=== PATIENT | male | born 1985 ===

== ENCOUNTER 2021-01-15 09:19 | Emergency (ER) | payer SELFPAY ==
[2021-01-15 09:30] VITALS: BP 169/112; PULSE 117; RESP 24; O2SAT 100
--- NOTE | 2021-01-15 09:47 | ECG_ITS ---
Measurements Intervals [place] Rate: 75 P: 40 [place]: 141 QRS: 32 QRSD: 90 T: 71 QT: 368 QTc: 414 Interpretive Statements SINUS RHYTHM MINIMAL Q WAVES- INFERIOR LEADS BORDERLINE ECG Electronically Signed On 01-15-2021 10:31:45 CDT by Mckay Kumari D.O.
--- NOTE | 2021-01-15 09:53 | ED.ANXIETY ---
HPI - Anxiety General Chief Complaint: Anxiety <Eugenie Shultz PA-C - Last Filed: 01/15/21 13:12> Stated Complaint: anxiety <YOCASTA Crook Last Filed: 01/15/21 13:12> Time Seen by Provider: 01/15/21 09:22 <YOCASTA Crook Last Filed: 01/15/21 13:12> Source: patient <YOCASTA Crook Last Filed: 01/15/21 13:12> Mode of arrival: ambulatory <YOCASTA Crook Last Filed: 01/15/21 13:12> Limitations: no limitations <YOCASTA Crook Last Filed: 01/15/21 13:12> History of Present Illness HPI narrative: This is a 35-year-old male that presents the emergency department for increasing anxiety. Reports worsening over the last couple of months. Reports his anxiety has been really bad since yesterday. He woke up and thought that he did not want to deal with this anymore. He does not have any thoughts of harming himself or anyone else. Reports he constantly worries, although he does not feel like he has anything to worry about. Reports he feels like there is an elephant on his chest and he gets tingling in his hands. Reports he was on medication for his anxiety in the past, but this was years ago. He does have a primary doctor, but has not reached out to him at all. No previous attempts at self-harm or suicide. No previous psychiatric hospitalizations. <Eugenie Shultz PA-C - Last Filed: 01/15/21 13:12> Related Data Allergies/Adverse Reactions: Allergies Allergy/AdvReac Type Severity Reaction Status Date / Time amoxicillin Allergy Unknown unknown Verified 01/15/21 09:40 Penicillins Allergy Unknown unknown-early Verified 01/15/21 09:40 childhood <YOCASTA Crook Last Filed: 01/15/21 13:12> Review of Systems Review of Systems: Narrative: CONSTITUTIONAL: Denies fever CARDIOVASCULAR: Reports chest pain RESPIRATORY: Denies dyspnea. NEUROLOGIC: Denies numbness, or weakness. PSYCHIATRIC: Reports anxiety <Eugenie Shultz PA-C - Last Filed: 01/15/21 13:12> All systems reviewed & are unremarkable except as noted in HPI and below <Eugenie Shultz PA-C - Last Filed: 01/15/21 13:12> PMFSH Past Medical History Medical History: Medical History (Updated 01/15/21 @ 13:10 by Eugenie Shultz PA-C) History of anxiety <Eugenie Shultz PA-C - Last Filed: 01/15/21 13:12> Social History Social History: Social History Substance use type: marijuana <Eugenie Shultz PA-C - Last Filed: 01/15/21 13:12> Exam Narrative: Exam Narrative: GENERAL: Well-appearing, well-nourished, and in no acute distress. HEAD: Normocephalic, atraumatic. EYES: PERRLA and EOMI. ENT: Nares clear, no rhinorrhea or epistaxis. Mucous membranes moist. Oropharynx without tonsillar hypertrophy exudate or other lesions. NECK: Supple. No adenopathy or masses. CHEST: Clear to auscultation. No respiratory distress. No wheezes rales or rhonchi HEART: Regular rate and rhythm. No murmur heard. Normal peripheral pulses. EXTREMITIES: Normal range of motion. No edema. SKIN: Warm, dry, no rash. NEURO: No focal deficits. Alert and oriented x3. PSYCH: Anxious <Eugenie Shultz PA-C - Last Filed: 01/15/21 13:12> Course Vital Signs Vital signs: Vital Signs Pulse Rate 117 H 01/15/21 09:30 Respiratory Rate 24 H 01/15/21 09:30 Blood Pressure 169/112 H 01/15/21 09:30 Pulse Oximetry 100 01/15/21 09:30 Pulse Rate 84 01/15/21 13:42 Respiratory Rate 16 01/15/21 13:42 Blood Pressure 173/98 H 01/15/21 13:42 Pulse Oximetry 98 01/15/21 13:42 <Eugenie Shultz PA-C - Last Filed: 01/15/21 13:12> Vital Signs Pulse Rate 117 H 01/15/21 09:30 Respiratory Rate 24 H 01/15/21 09:30 Blood Pressure 169/112 H 01/15/21 09:30 Pulse Oximetry 100 01/15/21 09:30 Pulse Rate 84 01/15/21 13:42 Respiratory Rate 16 01/15/21 13:42 Blood Pressure 173/98 H 01/15/21 13:42 Pulse Oximetry 98 01/15/21 13:42 Florencio Marie
[2021-01-15 10:16] LABS: Basophils Percent Auto 0.5 % (0.2-1.2); Eosinophils Percent Auto 0.2 % (0-4.4); Hematocrit 48.6 % (42.0-52.0); Hemoglobin 17.4 g/dL (14.0-18.0); Immature Granulocyte Absolute 0.03 K/mm3 (0.00-0.031); Immature Granulocyte Percent A 0.4 % (0-0.5); Lymphocytes Absolute Auto 2.04 K/mm3 (0.9-3.2); Lymphocytes Percent Auto 25.2 % (18.3-44.2); Mean Corpuscular HGB Conc 35.8 g/dl (32-36); Mean Corpuscular Volume 92.2 fl (80-100); Mean Platelet Volume 9.7 fl (7.4-10.4); Monocytes Absolute Auto 0.3 K/mm3 (0.1-0.6); Monocytes Percent Auto 4.2 % (2.6-8.5); Neutrophils Absolute Auto 5.6 K/mm3 (1.3-6.7); Neutrophils Percent Auto 69.5 % (45.5-73.1); Platelet Count Result 279 k/mm3 (150-375); Red Blood Count 5.27 M/mm3 (4.6-6.20); White Blood Count 8.1 K/mm3 (4.5-10.0)
[2021-01-15] MEDS: LORazepam (*CRX) 0.5 MG TABLET PO (10:22)
[2021-01-15 10:34] LABS: Ethanol 68 mg/dL (<10)
[2021-01-15 10:36] LABS: Alanine Aminotransferase 43 U/L (4-50); Albumin Level 4.9 g/dL (3.5-5.1); Alkaline Phosphatase 98 U/L (38-126); Anion Gap 17 mmol/L (8-16); Aspartate Amino Transferase 62 U/L (17-59); Bilirubin,Total 0.5 mg/dL (0.2-1.3); Blood Urea Nitrogen 9 mg/dL (9-20); Calcium 9.6 mg/dL (8.4-10.2); Carbon Dioxide 22 mmol/L (22-30); Chloride 104 mmol/L (98-107); Estimated CRCL calculation 101 ml/min; Estimated Glomerular Filt Rate > 60; Glucose 115 mg/dL (75-110); Potassium 3.6 mmol/L (3.4-5.0); Sodium 143 mmol/L (137-145)
[2021-01-15 10:47] LABS: Troponin I < 0.012 ng/mL (0.000-0.034)
[2021-01-15 10:53] LABS: Add Urine Microscopic? YES; Appearance Urine Clear (Clear); Bilirubin Urine Negative (Negative); Blood Urine Negative (Negative); Color Urine Yellow (Yellow); Glucose Urine UA Negative (Negative); Ketones Urine 1+ mg/dL (Negative); Leukocyte Esterase Ur Negative LEU/UL (Negative); Mucus Urine Moderate /lpf; Nitrate Urine Negative (Negative); Protein Urine 2+ mg/dL (Negative); RBC Urine 0-2 /hpf (0-2); Specific Grav Ur 1.019 (1.001-1.035); Urobilinogen Urine Negative mg/dL (<2.0); WBC Urine 0-3 /hpf
[2021-01-15 11:07] LABS: Amphetamine Screen Urine Negative (Negative); Benzodiazepines Screen Urine Negative (Negative); Cannabinoid Screen Urine Positive (Negative); Cocaine Screen Urine Negative (Negative); Methadone Screen Urine Negative (Negative); Opiate Screen Urine Negative (Negative); Phencyclidine Screen Urine Negative (Negative)
[2021-01-15 11:09] LABS: Barbiturate Screen Urine Negative (Negative)
[2021-01-15 13:42] VITALS: BP 173/98; PULSE 84; RESP 16; O2SAT 98
== END 2021-01-15 13:44 | disposition home or self-care (01) ==
PROVIDERS: Physician Assistant; Emergency Provider General Practice; PCP Family Medicine
DX: F41.9 Anxiety disorder, unspecified (principal); R94.31 Abnormal electrocardiogram [ECG] [EKG]
CPT/HCPCS: 36415; 80053; 80307; 81001; 84443; 84484; 85025; 93005; 99284; A9270

== ENCOUNTER 2021-11-17 08:31 | Emergency (ER) | payer SELFPAY ==
[2021-11-17] VITALS (9 sets, daily range): BP systolic 131–177; BP diastolic 98–116; PULSE 92–116; RESP 16–22; O2SAT 97–100
--- NOTE | ~2021-11-17 | CT_ITS ---
EXAMINATION: CT abdomen pelvis w con DATE: 11/17/2021 13:17 INDICATION: Nausea and vomiting TECHNIQUE: Computed tomography (CT) of the abdomen and pelvis was performed with 100 cc Omnipaque 350 intravenous contrast. The dose-length product was 832.23 mGy-cm. Automated exposure control and iter ative reconstruction technique were employed. COMPARISON: None. FINDINGS: Lung bases are unremarkable. Heart size normal. No significant pleural or pericardial effus ion. Fatty infiltration of the liver. The spleen, pancreas, adrenal glands and right kidney are unrem arkable. There is a subcentimeter hypodensity of the left kidney, most likely benign cysts. No ureter al stones or hydronephrosis. Gallbladder is present. Normal appendix. Nonobstructive bowel gas patter n. No free air or free fluid. IMPRESSION: 1. No acute abdominal abnormality. Reviewed, dictated and finalized at location A.
--- NOTE | ~2021-11-17 | XR_ITS ---
EXAMINATION: XR chest 2V 11/17/2021 09:01 INDICATION: Anxiety. Chest tightness. PROCEDURE: 2 view chest COMPARISON: No prior studies for comparison. FINDINGS: The lungs are clear. The cardiomediastinal silhouette is within normal limits. There are no pleural effusions. There is no pneumothorax suspected. IMPRESSION: 1: NO ACUTE CARDIOPULMONARY DISEASE. Reviewed, dictated and finalized at location A.
--- NOTE | 2021-11-17 08:42 | ECG_ITS ---
Measurements Intervals [place] Rate: 108 P: 75 [place]: 134 QRS: 66 QRSD: 93 T: 47 QT: 329 QTc: 442 Interpretive Statements SINUS TACHYCARDIA NONSPECIFIC ST AND T-WAVE ABNORMALITY ABNORMAL ECG COMPARED TO ECG 01/15/2021 10:27:02 SINUS TACHYCARDIA NOW PRESENT Electronically Signed On 11-17-2021 11:21:47 CDT by Philip Turk M.D.
[2021-11-17 09:15] LABS: Basophils Absolute Auto 0.1 K/mm3 (0.0-0.1); Basophils Percent Auto 0.6 % (0.2-1.2); Eosinophils Percent Auto 0.3 % (0-4.4); Hematocrit 52.1 % (42.0-52.0); Hemoglobin 17.5 g/dL (14.0-18.0); Immature Granulocyte Absolute 0.03 K/mm3 (0.00-0.031); Immature Granulocyte Percent A 0.3 % (0-0.5); Lymphocytes Absolute Auto 1.82 K/mm3 (0.9-3.2); Lymphocytes Percent Auto 18.5 % (18.3-44.2); Mean Corpuscular HGB Conc 33.6 g/dl (32-36); Mean Corpuscular Hemoglobin 32.8 pg (26-34); Mean Corpuscular Volume 97.6 fl (80-100); Mean Platelet Volume 9.6 fl (7.4-10.4); Monocytes Absolute Auto 0.2 K/mm3 (0.1-0.6); Monocytes Percent Auto 2.1 % (2.6-8.5); Neutrophils Absolute Auto 7.7 K/mm3 (1.3-6.7); Neutrophils Percent Auto 78.2 % (45.5-73.1); Platelet Count Result 331 k/mm3 (150-375); Red Blood Count 5.34 M/mm3 (4.6-6.20); Red Cell Distribution Width 13.3 % (11.5-14.5); White Blood Count 9.9 K/mm3 (4.5-10.0)
[2021-11-17] MEDS: diphenhydrAMINE HCl CAP 25 MG CAPSULE PO (09:23)
[2021-11-17 09:24] LABS: Alkaline Phosphatase 112 U/L (38-126); Anion Gap 25 mmol/L (8-16); Aspartate Amino Transferase 75 U/L (17-59); Bilirubin,Total 0.9 mg/dL (0.2-1.3); Blood Urea Nitrogen 14 mg/dL (9-20); Calcium 9.2 mg/dL (8.4-10.2); Carbon Dioxide 16 mmol/L (22-30); Chloride 99 mmol/L (98-107); Estimated CRCL calculation 84 ml/min; Estimated Glomerular Filt Rate > 60; Glucose 77 mg/dL (65-110); Potassium 4.4 mmol/L (3.4-5.0); Sodium 140 mmol/L (137-145)
[2021-11-17 09:30] LABS: Alanine Aminotransferase 63 U/L (4-50)
[2021-11-17 09:34] LABS: Troponin I < 0.012 ng/mL (0.000-0.034)
--- NOTE | 2021-11-17 09:38 | ED.SOB ---
HPI - SOB/Dyspnea General Chief Complaint: Shortness of Breath/Dyspnea Stated Complaint: sob Time Seen by Provider: 11/17/21 08:38 Source: patient History of Present Illness HPI Narrative: Patient presents with shortness of breath. Reports he had shortness of breath for approximately 1 year with intermittent exacerbations his current episode started last night this morning it was worse he came to the ER for evaluation. Reports he was seen several months ago for something similar diagnosed with anxiety was treated for anxiety and his symptoms improved. He denies any chest pain, cough, congestion, fevers denies recent hospitalizations or surgeries denies any abdominal pain denies any diarrhea or urinary symptoms Related Data Allergies Allergy/AdvReac Type Severity Reaction Status Date / Time amoxicillin Allergy Unknown unknown Verified 11/17/21 08:43 Penicillins Allergy Unknown unknown-early Verified 11/17/21 08:43 childhood Review of Systems Review of Systems: CONSTITUTIONAL: Denies fever, chills, or sweats. EYES: Denies visual changes, redness, or discharge. ENT: Denies rhinorrhea, congestion, sore throat, or otalgia. CARDIOVASCULAR: Denies chest pain, palpitations, or edema. RESPIRATORY: Denies cough. GASTROINTESTINAL: Denies abdominal pain, nausea, vomiting, or diarrhea. GENITOURINARY: Denies dysuria or hematuria. SKIN: Denies rash or itching. MUSCULOSKELETAL: Denies back pain, joint pain, or myalgia. NEUROLOGIC: Denies headache, numbness, dizziness, or weakness. PSYCHIATRIC: Denies anxiety or depression. All systems reviewed & are unremarkable except as noted in HPI and below PMFSH Past Medical History Medical History (Updated 11/17/21 @ 12:21 by Nura Martinez MD) Anxiety History of anxiety Social History Social History Substance use type: marijuana Exam Narrative: GENERAL: Well-appearing, well-nourished, and in no acute distress. HEAD: Normocephalic, atraumatic. EYES: PERRLA and EOMI. ENT: Nares clear, no rhinorrhea or epistaxis. Mucous membranes moist. NECK: Supple. No masses. No JVD CHEST: Clear to auscultation. No respiratory distress. No wheezes rales or rhonchi HEART: Regular rate and rhythm. No murmur heard. Normal peripheral pulses. ABDOMEN: Soft, nontender, nondistended, normal active bowel sounds. EXTREMITIES: Normal range of motion. No edema. SKIN: Warm, dry, no rash. NEURO: No focal deficits. Alert and oriented x3. PSYCH: Normal mood and affect. Course Reevaluation(s) Reevaluation #1: Patient feels somewhat improved results and plan reviewed with patient. Patient is comfortable outpatient plan. Date: 11/17/21 Time: 12:17 Vital Signs Vital signs: Vital Signs Pulse Rate 116 H 11/17/21 08:37 Respiratory Rate 18 11/17/21 08:37 Blood Pressure 177/116 H 11/17/21 08:37 Pulse Oximetry 100 11/17/21 08:37 Pulse Rate 112 H 11/17/21 16:13 Respiratory Rate 20 11/17/21 16:13 Blood Pressure 131/99 H 11/17/21 16:13 Pulse Oximetry 97 11/17/21 16:13 MDM - SOB/Dyspnea MDM Narrative Medical decision making narrative: H&P as above, vss, pt looks clinically well, exam reassuring, labs clinically unremarkable, img without acute process, additional labs/img considered, symptomatic relief available as needed, on reevaluation pt continues to looks clinically well. Suspect anxiety, dns PE, dissection, ACS, pneumothorax. plan to tx/monitor as op w/ pcm f/u findings/plan discussed with pt, pt agree/comfortable with plan, return precautions given Lab Data Result diagrams: 11/17/21 09:07 11/17/21 09:07 Labs: Lab Results 11/17/21 11/17/21 11/17/21 Range/Units 09:06 09:07 09:07 WBC 9.9 (4.5-10.0) K/mm3 RBC 5.34 (4.6-6.20) M/mm3 Hgb 17.5 (14.0-18.0) g/dL Hct 52.1 H (42.0-52.0) % MCV 97.6 (80-100) fl MCH 32.8 (26-34) pg MCHC 33.6 (32-36) g/dl RDW 13.3
[2021-11-17 09:47] LABS: D Dimer < 0.27 ug/mL (<0.48)
[2021-11-17] MEDS: LORazepam (*CRX) 0.5 MG TABLET PO (10:49)
[2021-11-17 11:33] LABS: SARS-CoV-2 RNA PCR Negative
[2021-11-17 12:36] LABS: Lipase 53 U/L (23-300)
[2021-11-17] MEDS: ONDANSETRON INJ 4 MG/2 ML VIAL IV PUSH (12:47)
--- NOTE | 2021-11-17 12:50 | PC.NURSE ---
Upon re-evaluation pt noted to have approx 200 ml of emesis. ERP aware, new orders received.
[2021-11-17] MEDS: LORazepam INJ (*CRX) 2 MG/ML VIAL 1 MG IV PUSH (14:36)
--- NOTE | 2021-11-17 15:36 | PC.NURSE ---
Upon re-evaluation pt appears more comfortable and is comfortable with d/c. ERP explained need for f/u to pt. Given resources.
== END 2021-11-17 16:14 | disposition home or self-care (01) ==
PROVIDERS: Emergency Provider Emergency Medicine
DX: R06.00 Dyspnea, unspecified (principal); F41.9 Anxiety disorder, unspecified; Z20.822 Contact with and (suspected) exposure to COVID-19; R94.31 Abnormal electrocardiogram [ECG] [EKG]; R00.0 Tachycardia, unspecified
CPT/HCPCS: 36415; 71046; 74177; 80053; 83690; 84484; 85025; 85380; 87804; 93005; 96374; 96375; 99284; A9270; C9803; J2060; J2405; Q9967; U0003; U0005

== ENCOUNTER 2022-06-10 16:18 | Emergency (ER) | payer SELFPAY ==
[2022-06-10] VITALS (10 sets, daily range): BP systolic 118–156; BP diastolic 57–118; PULSE 78–111; RESP 15–33; TEMP 36.7; O2SAT 96–100
--- NOTE | ~2022-06-10 | XR_ITS ---
EXAMINATION: XR chest 2V DATE: 06/10/2022 17:07 INDICATION: Nausea and vomiting. Feeling faint. TECHNIQUE: frontal and lateral views of the chest were obtained. COMPARISON: Chest radiograph dated 11/17/21 FINDINGS: The lungs are clear with no focal airspace opacities, pulmonary edema, pleural effusion or pneumothor ax. The cardiomediastinal silhouette is normal. Visualized bones and soft tissues are unremarkable. IMPRESSION: 1. No acute cardiopulmonary disease. Reviewed, dictated and finalized at location B.
--- NOTE | 2022-06-10 16:27 | ECG_ITS ---
Measurements Intervals [place] Rate: 97 P: 148 NM: 123 QRS: 142 QRSD: 106 T: 151 QT: 346 QTc: 441 Interpretive Statements NORMAL SINUS LEFT ATRIAL ENLARGEMENT [-0.15mV P WAVE IN V1/V2] POSSIBLE RIGHT VENTRICULAR HYPERTROPHY COMPARED TO ECG 11/17/2021 08:47:50 NO SIGNIFICANT CHANGE Electronically Signed On 06-10-2022 18:42:07 CDT by Patria Alfaro M.D.
[2022-06-10 16:57] LABS: Basophils Percent Auto 0.3 % (0.2-1.2); Eosinophils Absolute Auto 0.3 K/mm3 (0-0.3); Eosinophils Percent Auto 1.9 % (0-4.4); Hematocrit 50.3 % (42.0-52.0); Hemoglobin 17.6 g/dL (14.0-18.0); Immature Granulocyte Absolute 0.06 K/mm3 (0.00-0.031); Immature Granulocyte Percent A 0.4 % (0-0.5); Lymphocytes Absolute Auto 2.09 K/mm3 (0.9-3.2); Lymphocytes Percent Auto 15.5 % (18.3-44.2); Mean Corpuscular Hemoglobin 32.4 pg (26-34); Mean Corpuscular Volume 92.6 fl (80-100); Mean Platelet Volume 10.2 fl (7.4-10.4); Monocytes Absolute Auto 0.8 K/mm3 (0.1-0.6); Monocytes Percent Auto 5.6 % (2.6-8.5); Neutrophils Absolute Auto 10.3 K/mm3 (1.3-6.7); Neutrophils Percent Auto 76.3 % (45.5-73.1); Platelet Count Result 326 k/mm3 (150-375); Red Blood Count 5.43 M/mm3 (4.6-6.20); Red Cell Distribution Width 12.5 % (11.5-14.5); White Blood Count 13.5 K/mm3 (4.5-10.0)
[2022-06-10 17:04] LABS: Alanine Aminotransferase 40 U/L (6-50); Albumin Level 5.3 g/dL (3.5-5.1); Alkaline Phosphatase 99 U/L (38-126); Anion Gap 29 mmol/L (8-16); Aspartate Amino Transferase 57 U/L (17-59); Bilirubin,Total 1.2 mg/dL (0.2-1.3); Blood Urea Nitrogen 12 mg/dL (9-20); Calcium 10.2 mg/dL (8.4-10.2); Carbon Dioxide 16 mmol/L (22-30); Chloride 94 mmol/L (98-107); Estimated CRCL calculation 95 ml/min; Estimated Glomerular Filt Rate > 60; Glucose 139 mg/dL (65-110); Lipase 44 U/L (23-300); Potassium 4.3 mmol/L (3.4-5.0); Sodium 139 mmol/L (137-145)
[2022-06-10 17:15] LABS: Troponin I < 0.012 ng/mL (0.000-0.034)
[2022-06-10 17:16] LABS: INR 1.1; Prothrombin Time 13.9 Seconds (11.1-14.7)
[2022-06-10 17:17] LABS: Partial Thromboplastin Time 26.6 SECONDS (22.3-36.8)
[2022-06-10] MEDS: SODIUM CHLORIDE 0.9% IV 1,000 ML 999 ML IV CONT ×2 (18:12→19:35)
[2022-06-10] MEDS: ONDANSETRON INJ 4 MG/2 ML VIAL IV PUSH (18:13)
[2022-06-10] MEDS: LORazepam INJ (*CRX) 2 MG/ML VIAL 1 MG IV PUSH (18:13)
[2022-06-10 18:28] LABS: Acetaminophen < 10 ug/mL (10-30); Ethanol < 10 mg/dL (<10); Salicylate < 1.0 mg/dL (2-20)
[2022-06-10 18:37] LABS: Magnesium 1.8 mg/dL (1.6-2.3)
--- NOTE | 2022-06-10 19:13 | ED.GENADULT ---
HPI - General Adult General Chief complaint: Anxiety <Terrance Ruiz MD - Last Filed: 06/11/22 07:26> Stated complaint: anxiety attack <Terrance Ruiz MD - Last Filed: 06/11/22 07:26> Time Seen by Provider: 06/10/22 17:14 <Terrance Ruiz MD - Last Filed: 06/11/22 07:26> History of Present Illness HPI narrative: 37-year-old male with history of depression anxiety and alcoholism presenting the emergency department for evaluation of worsening anxiety depression. Patient states that he has been having worsening depression and anxiety and has had frequent hyperventilation. Patient states when hyperventilates he does get numbness to his hands. Patient denies any prior cardiac history. Patient states that he does drink approximately half a pint of vodka daily. Patient reports he had also been using THC daily but has not smoked in the last week. Patient does have a prior history of suicide attempt but has never had follow-up with a psychiatrist or counselor. Patient has never taken medications for his anxiety or depression. Patient was agreeable to talk to the crisis counselor today. <Terrance Ruiz MD - Last Filed: 06/11/22 07:26> Related Data Allergies/adverse reactions: Allergies Allergy/AdvReac Type Severity Reaction Status Date / Time amoxicillin Allergy Unknown unknown Verified 06/10/22 17:20 Penicillins Allergy Unknown unknown-early Verified 06/10/22 17:20 childhood <Terrance Ruiz MD - Last Filed: 06/11/22 07:26> Review of Systems Review of Systems: CONSTITUTIONAL: Denies fever, chills, or sweats. EYES: Denies visual changes, redness, or discharge. ENT: Denies rhinorrhea, congestion, sore throat, or otalgia. CARDIOVASCULAR: See HPI RESPIRATORY: Denies cough or dyspnea. GASTROINTESTINAL: Denies abdominal pain, nausea, vomiting, or diarrhea. GENITOURINARY: Denies dysuria or hematuria. SKIN: Denies rash or itching. MUSCULOSKELETAL: Denies back pain, joint pain, or myalgia. NEUROLOGIC: Denies headache, numbness, or weakness. PSYCHIATRIC: Worsening anxiety and depression <Terrance Ruiz MD - Last Filed: 06/11/22 07:26> [facility] Past Medical History Medical History: Medical History (Updated 06/10/22 @ 19:23 by Terrance Ruiz MD) Anxiety History of anxiety <Terrance Ruiz MD - Last Filed: 06/11/22 07:26> Social History Social History: Social History Substance use type: marijuana <Terrance Ruiz MD - Last Filed: 06/11/22 07:26> Exam Narrative: APPEARANCE: Well appearing, no pain, no distress, well-nourished. HEAD: normocephalic, atraumatic. EYES: PERRLA/EOMI, conjunctivae clear. NOSE: Normal no drainage NECK: Supple. No adenopathy, no masses. RESPIRATORY: Airway patent, respirations nonlabored. Clear to auscultation bilaterally, no rales, rhonchi, wheezing. CARDIOVASCULAR: Tachycardia ABDOMINAL: Soft, nontender, nondistended, normal bowel sounds MUSCULOSKELETAL: Moves all extremities. Strength/ROM intact, No edema, No calf tenderness. NEURO: Alert. Cranial nerves II through XII intact. Grossly intact SKIN: Warm, dry. Normal Color PSYCHIATRIC: Flat affect <Terrance Ruiz MD - Last Filed: 06/11/22 07:26> Course Course Emergency Course: Patient does feel improved with treatment. Patient was treated with Zofran for his nausea and Ativan for his anxiety. Patient was also treated with 1 L of normal saline. Patient is afebrile with no elevated leukocytosis. Patient does have a elevated anion gap but he is tolerating p.o. and was rehydrated. Patient feels improved. Patient salicylates acetaminophen and alcohol were negative. Chest x-ray showed no acute cardiopulmonary abnormality. At time of signout thyroid level is pending. Once the patient's TSH is resulted patient should be evaluated by the crisis counselor. <Terrance Ruiz MD - Last Filed: 06/11/22 07:26> Reevaluation(s) Reeval
[2022-06-10 20:14] LABS: Troponin I 0.019 ng/mL (0.000-0.034)
--- NOTE | 2022-06-10 21:29 | PC.NURSE ---
TY contacted regarding pt evaluation [id number]
--- NOTE | 2022-06-10 21:46 | PC.NURSE ---
TY denied patient, [facility] called for evaluation.
--- NOTE | 2022-06-10 21:50 | PC.NURSE ---
Bee [address], dispatched to evaluated patient.
[2022-06-10 22:23] LABS: SARS-CoV-2 RNA PCR Negative
--- NOTE | 2022-06-10 23:43 | PC.NURSE ---
[id number] Assumed pt care from Lindsey Jaime RN
--- NOTE | 2022-06-10 23:52 | PC.NURSE ---
Pt was informed that unfortunately he cannot stay in the waiting room overnight due to Covid restrictions and that he is being discharged on a safety plan. Pt was given several options on how to get home.
[2022-06-11 01:16] VITALS: BP 101/44; PULSE 68; RESP 17; O2SAT 98
[2022-06-11 02:01] VITALS: BP 91/52; PULSE 101; RESP 27; O2SAT 96
[2022-06-11 02:12] VITALS: BP 99/63; PULSE 85; PULSE 93; RESP 19; O2SAT 98; O2SAT 99
== END 2022-06-11 02:19 | disposition home or self-care (01) ==
LOC: ANHED 18:34
PROVIDERS: Emergency Medicine; Emergency Provider Emergency Medicine
DX: F41.9 Anxiety disorder, unspecified (principal); R06.4 Hyperventilation; Z20.822 Contact with and (suspected) exposure to COVID-19; R94.31 Abnormal electrocardiogram [ECG] [EKG]
CPT/HCPCS: 36415; 71046; 80053; 80307; 83690; 83735; 84443; 84484; 85025; 85610; 85730; 93005; 96361; 96374; 96375; 99284; C9803; J2060; J2405; J7030; U0003; U0005